=== PATIENT | female | born 1975 | race Caucasian/White ===

== ENCOUNTER → 2018-06-04 11:02 | Outpatient (CLI) | payer MEDICARE ==
[2014-05-26 12:49] VITALS: BMI 42.4
[~2018-06-04 11:02] MED LIST: BYETTA10 MCG/0.0 SQ; CLARITIN 10 MG10 MG PO; CORTEF10 MG PO; DETROL2 MG PO; FLAGYL500 MG PO; GLUCOPHAGE1000 MG PO; GLUCOTROL 5 MG T5 MG PO; INDOCIN25 MG PO; MULTIPLE VITAMI1 TA1 PO; RED YEAST RICE600 MG PO; SLOW RELEASE I160 MG PO; SPRINTEC1 TAB PO; SYNTHROID75 MCG PO; XALATAN 0.0052.5 ML EACH EYE; ZYLOPRIM100 MG PO
== END | disposition home or self-care (01) ==
LOC: D.NM 05-30 08:30
PROVIDERS: ATTEND Nurse Practitioner
DX: R11.0 Nausea (principal)

== ENCOUNTER 2018-06-26 23:26 | Emergency (ER) | payer MEDICARE ==
[~2018-06-26] VITALS: Ht 165.1 cm; Wt 107.7 kg
[2018-06-26 23:32] VITALS: Ht 165.1 cm; Wt 107.7 kg
[2018-06-26] MEDS ORDERED: ZYRTEC10 MG PO (23:38)
[2018-06-26] MEDS ORDERED: NEXIUM40 MG PO (23:38)
[2018-06-26] MEDS ORDERED: ZANAFLEX4 MG PO (23:39)
[2018-06-26] MEDS ORDERED: HYDROCODON-ACE1 EAC7 PO (23:54)
[2018-06-27 02:07] VITALS: BP 150/90
== END 2018-06-27 02:07 | disposition home or self-care (01) ==
LOC: D.ER 23:26
DX: M54.32 Sciatica, left side (principal)

== ENCOUNTER → 2018-07-09 16:55 | Outpatient (CLI) | payer MEDICARE ==
[2018-06-26 23:32] VITALS: BMI 39.5
[~2018-07-09 16:55] MED LIST changes: +HYDROCODON-ACE1 EAC7 PO; +NEXIUM40 MG PO; +ZANAFLEX4 MG PO; +ZYRTEC10 MG PO
== END | disposition home or self-care (01) ==
LOC: D.MAMMO 06-18 11:45
PROVIDERS: ATTEND Family Medicine
DX: Z12.31 Encounter for screening mammogram for malignant neoplasm of breast (principal)

== ENCOUNTER 2019-01-03 09:38 | Emergency (ER) | payer MEDICARE ==
[~2019-01-03] VITALS: Ht 165.1 cm; Wt 117.3 kg
[2019-01-03 09:39] VITALS: Ht 165.1 cm; Wt 117.3 kg
[2019-01-03] MEDS ORDERED: VOLTAREN75 MG PO (10:37)
[2019-01-03 11:00] VITALS: BP 134/73
== END 2019-01-03 11:00 | disposition home or self-care (01) ==
LOC: D.ER 09:38
DX: M54.5 Low back pain (principal); M62.830 Muscle spasm of back

== ENCOUNTER 2019-07-08 17:11 | Emergency (ER) | payer MEDICARE ==
[~2019-07-08] VITALS: Ht 165.1 cm; Wt 114.5 kg
[~2019-07-08 17:11] MED LIST changes: +VOLTAREN75 MG PO
[2019-07-08 17:38] VITALS: Ht 165.1 cm; Wt 114.5 kg
[2019-07-08 18:13] LABS: BILIRUBIN NEGATIVE (NEGATIVE); GLUCOSE NEGATIVE (NEGATIVE); KETONE NEGATIVE (NEGATIVE); NITRITE NEGATIVE (NEGATIVE); SPECIFIC GRAVITY 1.025 (1.005-1.020); UROBILINOGEN NORMAL (NORMAL)
[2019-07-08 18:14] LABS: BACTERIA FEW /hpf (NEGATIVE); EPITHELIAL CELLS 0-5 /hpf (0-5)
[2019-07-08 18:15] LABS: RED CELLS - URINE OCC /hpf (0-5)
[2019-07-08 18:19] LABS: BASOPHILS 0.3 % (0-2); EOSINOPHILS 1.5 % (0-7); HEMATOCRIT 38.9 % (36.0-48.0); HEMOGLOBIN 12.1 g/dL (12-16); IMMATURE GRANULOCYTES 0.2 % (0-5); LYMPHOCYTES 22.9 % (15-50); MCH 26.7 pg (26.0-34.0); MCHC 31.1 g/dL (31.0-37.0); MCV 85.7 fL (80.0-100.0); MEAN PLATELET VOLUME 9.3 fL (7.4-10.4); MONOCYTES 11.5 % (2-11); NEUTROPHILS 63.6 % (40-80); PLATELET COUNT 234 10x3/uL (130-400); RBC 4.54 10x6/uL (4.00-5.40); RDW 14.8 % (11.5-14.5); WBC 10.1 10x3/uL (4.8-10.8)
[2019-07-08 18:26] LABS: CALCIUM 8.8 mg/dL (8.5-10.1); CARBON DIOXIDE 24.5 mmol/L (21.0-32.0); CREATININE - SERUM 1.3 mg/dL (0.6-1.3); POTASSIUM - SERUM 3.5 mmol/L (3.5-5.1)
[2019-07-08 18:32] LABS: ALBUMIN 3.3 g/dL (3.4-5.0); BILIRUBIN - TOTAL 0.51 mg/dL (0.2-1.3); PROTEIN - SERUM 7.3 g/dL (6.4-8.2)
[2019-07-08] MEDS ORDERED: MACROBID100 MG PO (18:52)
[2019-07-08 19:44] VITALS: BP 118/72
== END 2019-07-08 19:46 | disposition home or self-care (01) ==
LOC: D.ER 17:11
PROVIDERS: Family Medicine
DX: N39.0 Urinary tract infection, site not specified (principal); E11.9 Type 2 diabetes mellitus without complications; E07.9 Disorder of thyroid, unspecified; Z79.84 Long term (current) use of oral hypoglycemic drugs; E86.0 Dehydration

== ENCOUNTER 2019-07-12 16:06 | Emergency (ER) | payer MEDICARE ==
[~2019-07-12] VITALS: Ht 165.1 cm; Wt 68.2 kg
[~2019-07-12 16:06] MED LIST changes: +MACROBID100 MG PO
[2019-07-12 16:12] VITALS: Ht 165.1 cm; Wt 68.2 kg
[2019-07-12 17:38] LABS: BASOPHILS 0.4 % (0-2); EOSINOPHILS 6.8 % (0-7); HEMATOCRIT 39.3 % (36.0-48.0); HEMOGLOBIN 12.3 g/dL (12-16); IMMATURE GRANULOCYTES 0.3 % (0-5); LYMPHOCYTES 38.8 % (15-50); MCH 26.6 pg (26.0-34.0); MCHC 31.3 g/dL (31.0-37.0); MCV 84.9 fL (80.0-100.0); MEAN PLATELET VOLUME 9.4 fL (7.4-10.4); MONOCYTES 8.9 % (2-11); NEUTROPHILS 44.8 % (40-80); PLATELET COUNT 237 10x3/uL (130-400); RBC 4.63 10x6/uL (4.00-5.40); RDW 14.4 % (11.5-14.5); WBC 6.8 10x3/uL (4.8-10.8)
[2019-07-12 17:48] LABS: CALC OSMOLALITY 285 mosm/kg (275-300); CALCIUM 8.8 mg/dL (8.5-10.1); CARBON DIOXIDE 27.1 mmol/L (21.0-32.0); CHLORIDE - SERUM 103 mmol/L (98-107); CREATININE - SERUM 0.7 mg/dL (0.6-1.3); GLUCOSE 229 mg/dL (74-106); POTASSIUM - SERUM 3.7 mmol/L (3.5-5.1); SODIUM 141 mmol/L (136-145); UREA NITROGEN 7 mg/dL (7-18); eGFR NON AFRICAN AMERICAN > 90 mL/min (90-120)
[2019-07-12 17:54] LABS: ALBUMIN 3.4 g/dL (3.4-5.0); ALKALINE PHOSPHATASE 96 U/L (30-120); ALT (SGPT) 22 U/L (10-68); BILIRUBIN - TOTAL 0.37 mg/dL (0.2-1.3); PROTEIN - SERUM 7.2 g/dL (6.4-8.2)
[2019-07-12 19:38] LABS: BILIRUBIN NEGATIVE (NEGATIVE); GLUCOSE 50 mg/dL (NEGATIVE); KETONE MODERATE mg/dL (NEGATIVE); NITRITE NEGATIVE (NEGATIVE); UROBILINOGEN NORMAL (NORMAL)
[2019-07-12 19:42] LABS: BACTERIA FEW /hpf (NEGATIVE); EPITHELIAL CELLS 0-5 /hpf (0-5); RED CELLS - URINE NONE SEEN /hpf (0-5)
[2019-07-12] MEDS ORDERED: KEFLEX500 MG PO (20:15)
[2019-07-12] MEDS ORDERED: LIDOCAINE50 GM TOPICAL (20:16)
[2019-07-12] MEDS ORDERED: MUPIROCIN22 GM TOPICAL (20:16)
[2019-07-12 20:37] VITALS: BP 140/87
== END 2019-07-12 20:37 | disposition home or self-care (01) ==
LOC: D.ER 16:06
PROVIDERS: Family Medicine
DX: R21 Rash and other nonspecific skin eruption (principal); R52 Pain, unspecified; N39.0 Urinary tract infection, site not specified; E11.9 Type 2 diabetes mellitus without complications; E07.9 Disorder of thyroid, unspecified; Z79.84 Long term (current) use of oral hypoglycemic drugs